=== PATIENT | female | born 2000 | race Caucasian/White ===

== ENCOUNTER 2021-06-13 10:58 | Outpatient (CLI) | payer OTHER, SELFPAY | END 2021-06-13 23:59 | disposition home or self-care (01) | LOC: LABSPEC 06-14 11:00 | PROVIDERS: PCP Family Medicine; Referring Provider Obstetrics & Gynecology; Visit Provider Obstetrics & Gynecology | DX: N90.89 Other specified noninflammatory disorders of vulva and perineum (principal) | CPT/HCPCS: 87070; 87077; 87186; 87205 ==

== ENCOUNTER → 2021-06-29 | Outpatient (CLI) | payer OTHER, SELFPAY | END | disposition home or self-care (01) | LOC: LABSPEC 16:45 | PROVIDERS: PCP Family Medicine; Visit Provider Obstetrics & Gynecology | DX: N90.89 Other specified noninflammatory disorders of vulva and perineum (principal); L72.0 Epidermal cyst | CPT/HCPCS: 87070; 87205 ==

== ENCOUNTER → 2021-07-23 | Outpatient (CLI) | payer OTHER, SELFPAY | END | disposition home or self-care (01) | PROVIDERS: PCP Family Medicine; Visit Provider Obstetrics & Gynecology | DX: L03.317 Cellulitis of buttock (principal) | CPT/HCPCS: 87070; 87077; 87186; 87205 ==

== ENCOUNTER → 2021-07-25 | Outpatient (CLI) | payer OTHER, SELFPAY ==
--- NOTE | 2021-07-25 13:30 | CT_ITS ---
STUDY: CT ABDOMEN AND PELVIS WITHOUT CONTRAST REASON FOR EXAM: Female, 21 years old. perirectal abscess that was lances today and packed with gauze. patient on menstrual cycle RADIATION DOSAGE (If Supplied By Facility): CTDIvol = ( 6.25 ) mGy, DLP = ( 332.39 ) mGycm TECHNIQUE: Transaxial images were obtained from the dome of the diaphragm to the symphysis pubis with oral contrast, and without intravenous contrast. Sagittal and coronal images were reconstructed. Individualized dose optimization techniques were used for this CT. COMPARISON: None. FINDINGS: The visualized lung bases are unremarkable. The visualized portions of the heart are within normal limits. Normal liver. Normal gallbladder and extrahepatic biliary system. Normal spleen. Normal pancreas. Normal bilateral adrenal glands. Normal right kidney. Normal left kidney. Normal visualized stomach. Normal small intestine. Normal colon. The appendix is visualized and appears normal. Normal abdominal aorta. Normal inferior vena cava. Normal retroperitoneum. Normal urinary bladder. 2.5 cm oval fluid collection with gas in the medial right buttock consistent with a known perirectal abscess. Normal osseous structures. CT/Abdomen/Pel W ORAL Cont Only IMPRESSION: Known right perirectal abscess. Otherwise normal CT of the abdomen and pelvis. Electronically Signed: Juan Tomlinson MD at 16:19 EDT ,
== END | disposition home or self-care (01) ==
LOC: CT 13:29
PROVIDERS: PCP Family Medicine; Referring Provider Obstetrics & Gynecology; Visit Provider Obstetrics & Gynecology
DX: L03.317 Cellulitis of buttock (principal); L72.0 Epidermal cyst
CPT/HCPCS: 74176

== ENCOUNTER → 2021-07-25 | Outpatient (CLI) | payer OTHER, SELFPAY | END | disposition home or self-care (01) | LOC: LABSPEC 08-03 05:05 | PROVIDERS: PCP Family Medicine; Visit Provider Obstetrics & Gynecology | DX: L02.31 Cutaneous abscess of buttock (principal) | CPT/HCPCS: 87070; 87077; 87186; 87205 ==

== ENCOUNTER 2021-07-26 09:39 | Outpatient (RCR) | payer OTHER, SELFPAY ==
[2021-07-26 10:07] VITALS: BP 120/69; PULSE 93; RESP 18; TEMP 36.6; BMI 47.2
--- NOTE | 2021-07-26 11:59 | HP.PCM_ITS ---
History of Present Illness Date of Service: 07/26/21 Chief Complaint: Right buttock abscess History of Wound: Ms. De Jesus is a 21-year-old who was referred here by her BRAILLE AND TALKING BOOKS CLERK for wound care. Had an I&D to a right buttock abscess yesterday however following I&D, significant depth was noted and so she was referred here. Patient states that over the last couple of months she has had recurrent abscesses which have been drained/managed by her BRAILLE AND TALKING BOOKS CLERK. No recent changes to detergents or cosmetics or living space. No known history of diabetes. No significant family history of. She is at a healthy BMI. No chills, fever or otherwise feeling of unwell. [facility] Home Medications norgestimate 0.25 mg-ethinyl estradiol 35 mcg tablet 1 tab PO QDAY #84 tab 03/26/21 [Rx Last Taken Unknown] ibuprofen 600 mg tablet 600 mg PO Q6H PRN #30 tab 07/23/21 [Rx Last Taken Unknown] oxycodone-acetaminophen 5 mg-325 mg tablet 1 tab PO Q6H 7 Days #10 tab 07/23/21 [Rx Last Taken Unknown] sulfamethoxazole 800 mg-trimethoprim 160 mg tablet 1 tab PO BID 10 Days #20 tab 07/23/21 [Rx Last Taken Unknown] amoxicillin 875 mg-potassium clavulanate 125 mg tablet 1 tab PO BID 10 Days #20 tab 07/25/21 [Rx Last Taken Unknown] clindamycin HCl 300 mg capsule 300 mg PO TID 10 Days #30 cap 07/25/21 [Rx Last Taken Unknown] oxycodone-acetaminophen 5 mg-325 mg tablet 1 tab PO Q4H PRN 3 Days #18 tab 07/25/21 [Rx Last Taken Unknown] Allergy/AdvReac Type Severity Reaction Status Date / Time No Known Allergies Allergy Verified 07/25/21 11:27 Family History Grandmother Cancer Breast cancer Surgical History History of tonsillectomy and adenoidectomy History of wisdom tooth extraction, class IV edentulism Social History adopted: No household members: family housing: house current occupational status: student Smoking Status: Never smoker alcohol intake: never substance use type: does not use what type of physical activity do you participate in: other details: cheerleading seatbelt use: always ROS Constitutional Constitutional: Denies change in weight, daytime sleepiness, difficulty sleeping, increased appetite, lethargy or malaise Eyes Eyes: Denies blind spots, bloody eye, blurry vision, change in eye color, diplopia, discharge from eye(s) or double vision ENT HEENT: Denies ear pain, epistaxis, facial pain, foreign body in nose, halitosis, headache(s), mouth lesions or mouth pain Cardiovascular Cardiovascular: Denies abdominal edema, arrhythmia on telemetry, bluish discolor ation of hand/feet, chest pain with activity, claudication, clubbing, cold extremities or dyspnea on exertion Respiratory/Chest Respiratory/Chest: Denies chest congestion, chest tightness, difficulty clearing secretions, dusky skin, dyspnea on exertion, excessive phlegm production or hemoptysis Gastrointestinal Gastrointestinal: Denies change in stool character, chewing difficulty, constipation, cramping, diarrhea, dry heaves, dyspepsia or early satiety Genitourinary Genitourinary: Reports difficulty with ejaculations; Denies abdominal discomfort, difficulty urinating, flank pain, itching, low back pain or nocturia Musculoskeletal Musculoskeletal: Denies difficulty walking, extremity pain, joint pain, joint stiffness, joint swelling, muscle cramps or muscle spasms Integumentary Integumentary: Denies changing lesions, hirsutism, jaundice, lesions, nail changes or new lesions Neurologic Neurologic: Denies abnormal speech, behavior changes, convulsions, disequilibrium, dizziness, focal weakness, frequent falls or headache(s) Psychiatric Psychiatric: Denies behavioral changes, change in appetite, cognitive impairment, confusion, depression, difficulty concentrating or hallucinations Endocrine Endocrinology: Denies cold intolerance, deepening of the voice, excessive sweating, fatigue, flushing, palpitations or polydipsia Hematologic/Lymphatic Hematologic/Lymphatic: Denies anemia, easy bleeding or easy bruising Allergic/Immunologic Allergic/Immunologic: Denies itchy eyes, lip swelling, seasonal rhinorrhea, rhinitis, throat swelling or tongue swelling Vital Signs Vital Signs Vital Signs: 07/26/21 10:07 Temperature 98 F Temperature Source Temporal Pulse Rate 93 Respiratory Rate 18 Blood Pressure 120/69 Blood Pressure Mean 86 Blood Pressure Source Monitor Blood Pressure Position Semi-Fowlers Blood Pressure Location Left Arm Weight Weight: 275 lb 9.245 oz Body Mass Index (BMI) 47.2 Physical Exam Const alert, oriented x3 and no apparent distress General Appearance: cooperative, comfortable and well kempt HEENT normocephalic, head/scalp atraumatic and hearing grossly normal bilaterally Head and Scalp: normal to inspection, normocephalic and atraumatic Eyes EOMs intact bilaterally General Eye: normal appearance of both eyes Neck full ROM General: normal visual inspection Resp normal respiratory effort Effort and Inspection: able to speak in complete sentences Extremity normal to inspection and full ROM Skin Wounds: wounds noted Neuro oriented x3, CN's II-XII intact bilaterally and moves all extremities Psych mental status grossly normal Appearance: grossly normal Attitude: calm Activity / Motor Behavior: appropriate eye contact Speech: normal speech Debridement Note Debridement Note Wound debrided: Right buttock Type of Debridement: Excisional debridement Anesthesia Used: 4% Lidocaine Solution Depth: Down to and including healthy tissue and in the subcutaneous layer Percentage of wound debrided: 100 Instrument Used: 3mm curette Tissue Removed: Devitalized tissue Severity: Fat Layer Exposed Amount of bleeding with debridement: Mild Bleeding Controlled with: Pressure Patient tolerated procedure: Patient tolerated procedure well Post-Debridement Measurements and Additional Note: Post-Debridement Measurements/Treatment WC - Nurse 1 - General Ulcer Assessment Start: 07/26/21 10:07 Freq: Status: Active Protocol: SOFIA Activity Type Activity Date Activity User E-Sign Co-Sign Detail Recorded Client Recorded Date Recorded By Document 07/26/21 10:07 RB [id number] 07/26/21 10:23 RB Edit Result 07/26/21 10:07 RB (1) [id number] 07/26/21 10:28 RB (1) Height => 5 ft 4 in Weight => 275 lb 9.245 oz Weight in Pounds => 275.6 lbs Body Mass Index (BMI) => 47.2 BMI Classification => Obese BSA - Julisa => 2.24 Is Patient Pain Free? Yes => No buttock - Description => Aching - Intensity => 2 - Duration (hours) => Acute - Pain Behavior => Withdrawal from => Touch - Pain Aggravating Factors => Sitting - Alleviating Factors/Interventions => Medication - Effectiveness of Alleviating Factor/ => Moderately Intervention => effective Cultural/Mormon Needs that may affect => No Treatment Plan Would you allow our hospital paint prep technician to => No meet you for the purpose of spiritual/ emotional support? Boom Master to contact place of rastafarian => No 07/26/21 10:07 WC - Today's Visit Information Type of service Follow-up Visit (Physician/SUPERVISOR CABINETMAKER ) Arrival Mode Ambulatory Transfer Assistance None Patient Identification Verified (Name & Yes ) Patient Requires Transmission-Based No Precautions Height and Weight Height 5 ft 4 in Weight 275 lb 9.245 oz Weight in Pounds 275.6 lbs Body Mass Index (BMI) 47.2 BMI Classification Obese BSA - Julisa 2.24 Vital Signs Temperature (97.8 F-99.1 F) 98 F Temperature Source Temporal Pulse Rate (60-100) 93 Pulse Location Monitor Respiratory Rate (12-18) 18 Respiratory rate source Observation Blood Pressure (90/60-120/80) 120/69 Blood Pressure Mean 86 Source Monitor Position Semi-Fowlers Blood Pressure Location Left Arm History Since Last Visit- (Skip if this is Patient's initial visit) Have you changed medications since your No last visit? Any new allergies or adverse reactions No Had a fall/change in ADL's that may No increase risk of falls Signs or symptoms of abuse and/or No neglect since last visit Have you been in the hospital since your No last visit? Has dressing in place as prescribed Yes Has compression in place as prescribed No Has offloadiing in place as prescribed No Experienced any changes in pain level or No management Left Footwear Regular Shoe Right Footwear Regular Shoe Pain Scale: 0-10 Numeric Is Patient Pain Free? No buttock -Description Aching -Intensity 2 -Duration (hours) Acute -Pain Behavior Withdrawal from Touch -Pain Aggravating Factors Sitting -Alleviating Factors/Interventions Medication -Effectiveness of Alleviating Factor/ Moderately Intervention effective Culture/Mormon/Boom Master Cultural/Mormon Needs that may affect No Treatment Plan Would you allow our hospital paint prep technician to No meet you for the purpose of spiritual/ emotional support? Boom Master to contact place of rastafarian No WC - Nurse 1 - General Ulcer Measurement Start: 07/26/21 10:07 Freq: Status: Active Protocol: Activity Type Activity Date Activity User E-Sign Co-Sign Detail Recorded Client Recorded Date Recorded By Document 07/26/21 10:07 RB [id number] 07/26/21 10:23 RB 07/26/21 10:07 Wound Center Nurse 1 1. R buttock -Combined with other wound No -Current Size (cm) - Length 0.6 -Current Size (cm) - Width 0.1 -Current Size (cm) - Depth 5 -Total Square Cm 0.06 -Photo Taken Yes -Tunneling No -Undermining/Tunneling No -Circular Undermining No -Exudate Amt Large -Exudate Type Serosanguineous -Wound Margin Distinct, Outline Attached -Granulation Amt Large (67-100%) -Granulation Quality [place] -Slough/Fibrin Yes -Necrosis Amt Small (1-33%) -Necrotic Tissue Type Adherent Slough -Structure Exposed N/A -Texture (Jennifer-wound Skin Appearance) Assessed -Moisture (Jennifer-wound Skin Appearance) Assessed -Color (Jennifer-wound Skin Appearance) Assessed -Temperature (Jennifer-wound Skin No Abnormality Appearance) (Pt Warm) -Tenderness on Palpation (Jennifer-wound No Skin Appearance) -Ulcer Cleansing Wound Cleanser -Foul Odor after Cleansing No -Anesthetic Used 5% Lidocaine Gel WC - Nurse 2 - General Ulcer CM Notes Start: 07/26/21 10:07 Freq: Status: Active Protocol: Activity Type Activity Date Activity User E-Sign Co-Sign Detail Recorded Client Recorded Date Recorded By Document 07/26/21 10:41 [id number] 07/26/21 10:54 07/26/21 10:41 Wound Center Nurse 2 -Time 10:45 -Correct Patient Yes -Correct Side, Site, Position Yes -Correct Procedure Yes -Procedure Performed Yes -Type of Procedure Debridement -Clinical Debridement Subcutaneous -Tissue Removed Subcutaneous -Post Debridement (cm) - Length 0.2 -Post Debridement (cm) - Width 0.7 -Post Debridement (cm) - Depth 4.8 -Total Square (Post) (cm) 0.14 -Area of Debridement (cm) - Length 0.2 -Area of Debridement (cm) - Width 0.7 -Total Square (Area) (cm) 0.14 -Tunneling No -Undermining/Tunneling No -Circular Undermining No -Wound/Ulcer Outcome Not Healed -Ulcer Cleansing Rinsed/ Irrigated with Saline -Foul Odor after Cleansing No -Bioengineered Tissue No -Bleeding Controlled with Pressure -Treatment Response Procedure Tolerated Well -Offloading No -Debridement - Subq, 1st 20sq cm Yes Pain Scale: 0-10 Numeric Is Patient Pain Free? Yes - Nurse 3 - General Ulcer D/C NN Start: 07/26/21 10:07 Freq: Status: Active Protocol: Activity Type Activity Date Activity User E-Sign Co-Sign Detail Recorded Client Recorded Date Recorded By Document 07/26/21 11:18 RB [id number] 07/26/21 11:18 RB 07/26/21 11:18 Wound Care Nurse 3 1. R buttock -Ulcer Cleansing Wound Cleanser -Primary Dressing Applied Aquacel AG 4x4 -Other Dressing packed into wound depth -Primary Dressing Covered/Secured with Dry Gauze, Secured with Tape -Aquacel AG 4x4 1 Treatment Response Procedure Tolerated Well Pain Scale: 0-10 Numeric Is Patient Pain Free? Yes WC - Visit Discharge Discharge Condition Stable Ambulatory Status Ambulatory Transportation Private Auto Medication Reconcilliation completed & No provided to patient/care provider Clinical Summary of Care Provided Yes Charges/Coding Visit Charges Office Visits / Consults: 76989 OV L3 New Procedures Integumentary [id number]: [id number] Darcie subq tissue 20 sq cm/< Assessment/Plan Assessment/Plan (1) Abscess of buttock, right: CODE(S): L02.31 - Cutaneous abscess of buttock PLAN: Status post I&D by BRAILLE AND TALKING BOOKS CLERK. Referred here for wound management. Debridement done as documented above, procedure was well-tolerated. Significant depth and drainage. She will benefit from a wound VAC unable to do dressings herself due to location and pain. Application for Snap vac started. In the meantime, iodoform daily to twice daily depending on drainage. Increase protein intake, vitamin C, D and zinc also discussed/recommended. Due to her recurrent abscesses she was advised to do Hibiclens wash daily, she voiced understanding. Her questions were answered and she was advised to call with any further questions or concerns. Follow-up with me in 1 week or sooner if needed. This note was generated with [employer] software. It may contain incorrect words, spelling, and punctuation that were not noted in checking the note before signing.
== END 2021-07-31 23:59 | disposition home or self-care (01) ==
LOC: WC 09:39
PROVIDERS: PCP Family Medicine; Visit Provider Internal Medicine
DX: L02.31 Cutaneous abscess of buttock (principal); Z79.899 Other long term (current) drug therapy
CPT/HCPCS: 11042; 99213; G0463

== ENCOUNTER 2021-08-02 09:15 | Outpatient (RCR) | payer OTHER, SELFPAY ==
[2021-08-01 01:19] VITALS: BP 120/69; PULSE 93; RESP 18; TEMP 36.6; BMI 47.2
[2021-08-02 09:03] VITALS: BP 124/91; PULSE 110; RESP 16; TEMP 36.2; BMI 47.2
--- NOTE | 2021-08-02 12:43 | PCM.WC.PN ---
History of Present Illness Date of Service: 08/02/21 Chief Complaint: Right buttock abscess History of Wound: Ms. De Jesus is a 21-year-old who was referred here by her SHIP ENGINES OPERATING ENGINEER for wound care. Had an I&D to a right buttock abscess yesterday however following I&D, significant depth was noted and so she was referred here. Patient states that over the last couple of months she has had recurrent abscesses which have been drained/managed by her SHIP ENGINES OPERATING ENGINEER. No recent changes to detergents or cosmetics or living space. No known history of diabetes. No significant family history of. She is at a healthy BMI. No chills, fever or otherwise feeling of unwell. Progress of Wound: Has been applying iodoform, has had no significant drainage in days. Area is healed. Objective Data Objective Data Vital Signs: Vital Signs Temp Pulse Resp BP 97.1 F L 110 H 16 124/91 H 08/02/21 09:03 08/02/21 09:03 08/02/21 09:03 08/02/21 09:03 Oxygen Delivery Method Room Air Weight: 275 lb 9.245 oz Body Mass Index (BMI) 47.2 Charges/Coding Visit Charges Office Visits / Consults: 19401 OV L3 Est Physical Exam Const alert, oriented x3 and no apparent distress General Appearance: cooperative, comfortable and well kempt HEENT normocephalic, head/scalp atraumatic and hearing grossly normal bilaterally Head and Scalp: normal to inspection, normocephalic and atraumatic Eyes EOMs intact bilaterally General Eye: normal appearance of both eyes Neck full ROM General: normal visual inspection Resp normal respiratory effort Effort and Inspection: able to speak in complete sentences Extremity normal to inspection and full ROM Neuro oriented x3, CN's II-XII intact bilaterally and moves all extremities Psych mental status grossly normal Appearance: grossly normal Attitude: calm Activity / Motor Behavior: appropriate eye contact Speech: normal speech Debridement Note Debridement Note Post-Debridement Measurements and Additional Note: Post-Debridement Measurements/Treatment MAYTE - Nurse 1 - General Ulcer Assessment Start: 08/02/21 09:03 Freq: Status: Active Protocol: SOFIA Activity Type Activity Date Activity User E-Sign Co-Sign Detail Recorded Client Recorded Date Recorded By Document 08/02/21 09:03 [facility] [id number] 08/02/21 09:11 [facility] 08/02/21 09:03 - Today's Visit Information Type of service Follow-up Visit (Physician/BRONC BUSTER ) Arrival Mode Ambulatory Transfer Assistance None Patient Identification Verified (Name & Yes ) Patient Requires Transmission-Based No Precautions Height and Weight Body Mass Index (BMI) 47.2 BMI Classification Obese Vital Signs Temperature (97.8 F-99.1 F) 97.1 F L Temperature Source Temporal Pulse Rate (60-100) 110 H Pulse Location Monitor Respiratory Rate (12-18) 16 Respiratory rate source Observation Oxygen Delivery Method Room Air Blood Pressure (90/60-120/80) 124/91 H Blood Pressure Mean (mm Hg) 102 Source Monitor Position Sitting Blood Pressure Location Right Arm History Since Last Visit- (Skip if this is Patient's initial visit) Have you changed medications since your No last visit? Any new allergies or adverse reactions No Had a fall/change in ADL's that may No increase risk of falls Signs or symptoms of abuse and/or No neglect since last visit Have you been in the hospital since your No last visit? Has dressing in place as prescribed No Has compression in place as prescribed N/A Has offloadiing in place as prescribed N/A Experienced any changes in pain level or No management Left Footwear Regular Shoe Right Footwear Regular Shoe Pain Scale: 0-10 Numeric Is Patient Pain Free? Yes - Nurse 1 - General Ulcer Measurement Start: 08/02/21 09:03 Freq: Status: Active Protocol: Activity Type Activity Date Activity User E-Sign Co-Sign Detail Recorded Client Recorded Date Recorded By Document 08/02/21 09:03 [facility] [id number] 08/02/21 09:11 [facility] 08/02/21 09:03 Wound Center Nurse 1 1. R buttock -Combined with other wound No -Current Size (cm) - Length 0.1 -Current Size (cm) - Width 0.1 -Current Size (cm) - Depth 0.1 -Total Square Cm 0.01 -Photo Taken No -Epithelialization Large 67-100% -Tunneling No -Undermining/Tunneling No -Circular Undermining No -Exudate Amt None Present -Texture (Jennifer-wound Skin Appearance) Assessed -Moisture (Jennifer-wound Skin Appearance) Assessed -Color (Jennifer-wound Skin Appearance) Assessed -Temperature (Jennifer-wound Skin No Abnormality Appearance) (Pt Warm) -Tenderness on Palpation (Jennifer-wound No Skin Appearance) -Ulcer Cleansing Rinsed/ Irrigated with Saline -Foul Odor after Cleansing Yes, Due to Product Use -Anesthetic Used 5% Lidocaine Gel WC - Nurse 2 - General Ulcer CM Notes Start: 08/02/21 09:03 Freq: Status: Active Protocol: Activity Type Activity Date Activity User E-Sign Co-Sign Detail Recorded Client Recorded Date Recorded By Document 08/02/21 09:18 MW [id number] 08/02/21 09:19 MW 08/02/21 09:18 Wound Center Nurse 2 -Time 09:19 -Correct Patient Yes -Correct Side, Site, Position Yes -Correct Procedure Yes -Procedure Performed No -Post Debridement (cm) - Length 0 -Post Debridement (cm) - Width 0 -Post Debridement (cm) - Depth 0 -Total Square (Post) (cm) 0 -Wound/Ulcer Outcome Healed- Epithelialized Pain Scale: 0-10 Numeric Is Patient Pain Free? Yes WC - Nurse 3 - General Ulcer D/C NN Start: 08/02/21 09:03 Freq: Status: Active Protocol: Activity Type Activity Date Activity User E-Sign Co-Sign Detail Recorded Client Recorded Date Recorded By Document 08/02/21 09:19 MW [id number] 08/02/21 09:20 MW 08/02/21 09:19 Is Patient Pain Free? Yes Teaching: Wound Center Discharge Instructions -Person Taught Patient -Teaching Method Discussion -Response to teaching Verbalize understanding WC - Visit Discharge Discharge Condition Stable Ambulatory Status Ambulatory Transportation Private Auto Accompanied by self Medication Reconcilliation completed & No provided to patient/care provider Clinical Summary of Care Provided Yes Notes: healed Assessment/Plan Assessment/Plan (1) Abscess of buttock, right: CODE(S): L02.31 - Cutaneous abscess of buttock PLAN: Healed. She states that she has had no drainage. Had been using iodoform. Continue Hibiclens wash. Her questions were answered and she was advised to call with any further questions or concerns. Discharge from the wound clinic. This note was generated with [employer] software. It may contain incorrect words, spelling, and punctuation that were not noted in checking the note before signing.
== END 2021-08-02 16:04 | disposition home or self-care (01) ==
LOC: WC 09:15
PROVIDERS: PCP Family Medicine; Visit Provider Internal Medicine
DX: L02.31 Cutaneous abscess of buttock (principal)
CPT/HCPCS: 99212; G0463

== ENCOUNTER 2021-11-10 20:40 | Emergency (ER) | payer OTHER, SELFPAY ==
[2021-11-10 20:42] VITALS: BP 161/88; PULSE 130; RESP 18; TEMP 38.2; O2SAT 100; BMI 21.4
--- NOTE | 2021-11-10 21:12 | EDS_ITS ---
HPI History of Present Illness Chief Complaint: Headache Informant: patient and parent Narrative Narrative: Here with mother for evaluation had a fever since yesterday myalgias. No cough. No sore throat. No rhinorrhea. No urinary symptoms. No vomiting or diarrhea. Nonvaccinated for COVID. Denies sick contacts. Goes to college. Also works in a daycare. Using medicines [id number] with no relief. [facility]. Reported that they did not treat migraines therefore nothing was done. No COVID testing. Reports some neck pain however no significant. Mother here presents stating her son had meningitis have is viral in the past. Reports photo and phonophobia. Last menstrual period 3 weeks ago. Prior similar symptoms: No PFSH PFSH Home Medications norgestimate 0.25 mg-ethinyl estradiol 35 mcg tablet (Sprintec (28)) 1 tab PO QDAY #84 tabs 03/26/21 [Rx Last Taken Unknown] ibuprofen 600 mg tablet 600 mg PO Q6H PRN pain #30 tabs 07/23/21 [Rx Last Taken Unknown] Allergy/AdvReac Type Severity Reaction Status Date / Time No Known Allergies Allergy Verified 11/10/21 20:42 Family History Grandmother Cancer Breast cancer Surgical History History of tonsillectomy and adenoidectomy History of wisdom tooth extraction, class IV edentulism Social History adopted: No household members: family housing: house current occupational status: student Smoking Status: Never smoker alcohol intake: never substance use type: does not use what type of physical activity do you participate in: other details: dimitrios beckwith seatbelt use: always ROS ROS ED Constitutional Constitutional ED: Reports chills and fever(s); Denies sweats Eyes Eyes: Denies change in vision ENT ENT ED: Denies dysphagia or sore throat Cardiovascular Cardiovascular: Denies chest pain, leg edema, palpitations or racing heartbeat Respiratory/Chest Respiratory/Chest: Denies cough, dyspnea or dyspnea on exertion Gastrointestinal Gastrointestinal: Denies abdominal pain, diarrhea, nausea or vomiting Genitourinary Genitourinary ED: Denies dysuria, hematuria or urinary frequency Musculoskeletal Musculoskeletal: Denies back pain, extremity pain or neck pain Integumentary Denies rash or wounds Neurologic Neurologic: Reports headache(s); Denies paresthesias or weakness EXAM Physical Exam Const Vital Signs: 11/10/21 20:42 11/10/21 21:42 11/10/21 23:27 Temperature 100.8 F H 99.8 F H Temperature Source Oral Oral Pulse Rate 130 H 98 Respiratory Rate 18 16 Respiratory Pattern Normal Blood Pressure 161/88 H 132/74 H Blood Pressure Mean 112 93 Pulse Ox 100 99 Oxygen Delivery Method Room Air Room Air 11/10/21 23:27 Temperature 99.8 F H Temperature Source Pulse Rate 98 Respiratory Rate 16 Respiratory Pattern Blood Pressure 132/74 H Blood Pressure Mean Pulse Ox 99 Oxygen Delivery Method Positive well nourished and well developed General Appearance ED: well developed and NAD HEENT Reports TM's clear and moist mucous membranes normocephalic and atraumatic Tympanic Membrane ED: Yes TM's clear Eyes PERRL, EOMs intact bilaterally and conjunctivae normal General Eye ED: Yes normal appearance of both eyes Neck no lymphadenopathy, supple and no meningeal signs General: Negative for tenderness Chest Wall Chest: Negative for tenderness Resp normal respiratory effort and normal air movement Effort and Inspection: symmetric chest movement; Negative for respiratory distress Cardio regular rhythm and no murmurs Rate: tachycardic Peripheral Pulses: pulses 2+ throughout GI normal to inspection, nondistended, normoactive bowel sounds and non-tender Palpation: Negative for guarding or rebound tenderness present Back/Spine no CVA tenderness and no thoracic nor lumbar tenderness Extremity normal to inspection General Extremety ED: Negative for edema or tenderness General Extremity: Negative for edema Neuro oriented x3, CN's II-XII intact bilaterally and no sensory deficits noted Sensorium / Orientation: awake and alert Skin no rashes or lesions noted and no wounds MDM MDM MDM Narrative Medical decision making narrative: Patient presenting with low-grade fever headache. She reports neck pain however she has no meningismus signs. She has migraine symptoms. COVID influenza returned negative. She was treated with migraine cocktail with improving symptoms. I did discuss with mother and patient concerns for meningitis definitive rule out would be for lumbar puncture. Certainly not bacterial has been more than 24 hours. Did not want to pursue work-up at this time. Heart rate improved with fluids. She will continue Tylenol Motrin at home. Discussed could be false negative COVID and or influenza symptoms only within 1 day. They can retest in 2 days. Return precaution discussed. All questions were answered. Discharge Plan Triage Chief Complaint: Headache Other Complaint: Fever ED Provider: Riley Marie Dx/Rx/DC Orders Clinical Impression: Migraine headache, Viral syndrome, Fever Instructions: ED Headache Unspecified, ED Viral Syndrome (Adult) Prescriptions: No Action ibuprofen 600 mg tablet 600 mg PO Q6H PRN (Reason: pain) Qty: 30 0RF norgestimate-ethinyl estradiol [Sprintec (28)] 0.25-35 mg-mcg tablet 1 tab PO QDAY Qty: 84 4RF Primary Care Provider: Naila Mckeon Referrals: Naila Mckeon MD [Primary Care Provider] - 3-5 Days if not improving Activity Restrictions/Additional Instructions: Rapid COVID and flu negative today. May recheck at home COVID in 2 days if still symptomatic. Continue Tylenol Motrin and oral fluids. Return if any worsening symptoms. Disposition Disposition: Home, Self Care Discharge Date/Time: 11/10/21 23:29
[2021-11-10] MEDS: Ketorolac 15 MG/ML Vial IV (21:32)
[2021-11-10] MEDS: 0.9% Normal Saline 1,000 ML 999 ML IV (21:32)
[2021-11-10] MEDS: Metoclopramide 10 MG/2 ML Vial IV (21:33)
[2021-11-10] MEDS: DiphenhydrAMINE 50 MG/ML Syringe 25 MG IV (21:33)
[2021-11-10 23:27] VITALS: BP 132/74; PULSE 98; RESP 16; TEMP 37.7; O2SAT 99
== END 2021-11-10 23:29 | disposition home or self-care (01) ==
PROVIDERS: Emergency Provider Emergency Medicine; PCP Family Medicine; Visit Provider Emergency Medicine
DX: G43.909 Migraine, unspecified, not intractable, without status migrainosus (principal); Z20.822 Contact with and (suspected) exposure to COVID-19; B34.9 Viral infection, unspecified; Z28.310 Unvaccinated for COVID-19; R50.9 Fever, unspecified; M54.2 Cervicalgia
CPT/HCPCS: 87428; 96361; 96374; 96375; 99284; J7030

== ENCOUNTER → 2022-03-11 | Outpatient (CLI) | payer OTHER, SELFPAY ==
[2022-03-19 22:20] LABS: HPV APTIMA, High Risk Negative (Negative)
[2022-03-19 22:21] LABS: HPV Reflexed? YES, CHARGE PATIENT
== END | disposition home or self-care (01) ==
PROVIDERS: PCP Family Medicine; Visit Provider Nurse Practitioner Women's Health
DX: Z12.4 Encounter for screening for malignant neoplasm of cervix (principal)
CPT/HCPCS: 87624; 88175; G0145

== ENCOUNTER → 2022-09-13 | Outpatient (CLI) | payer OTHER, SELFPAY ==
[2022-09-13 17:52] LABS: Absolute Lymphocyte Count 2.15 X10^3/uL (0.83-4.51); Absolute Neutrophil Count 3.7 X10^3/uL (2.0-7.7); Basophil# 0.04 X10^3/uL; Basophil% 0.6 % (0-1); Eosinophil# 0.05 X10^3/uL; Eosinophils% 0.8 % (0-5); Hematocrit 41.6 % (37-47); Hemoglobin 13.5 g/dL (12.0-15.0); Lymphocyte # 2.15 X10^3/ul (0.83-4.51); Lymphocyte % 33.9 % (19-41); Mean Corp Hgb Conc 32.5 g/dL (32-36); Mean Corpuscular Hgb 29.3 pg (27.0-32.0); Mean Corpuscular Volume 90.2 fL (81-99); Mean Platelet Vol. 10.6 fl (6.2-12.0); Monocyte# 0.36 X10^3/uL; Monocyte% 5.7 % (0-10); NRBC Flagged by Analyzer 0 % (0-5); Neutrophil # 3.73 X10^3/uL (2.7-7.7); Neutrophil % 58.8 % (47-70); Platelet Count 255 K/mm3 (150-450); RBC Distribution Width CV 12.2 % (11.6-14.6); RBC Distribution Width SD 40.1 fl (35.1-43.9); Red Blood Count 4.61 M/mm3 (4.2-5.4); White Blood Count 6.3 K/mm3 (4.4-11.0)
[2022-09-13 18:14] LABS: Internal QC Validated? YES +Cl - CLEAR BKGD; Monotest Negative (Negative)
== END | disposition home or self-care (01) ==
LOC: MFPLAB 14:51
PROVIDERS: PCP Family Medicine; Visit Provider Family Medicine
DX: J02.9 Acute pharyngitis, unspecified (principal)
CPT/HCPCS: 36415; 85025; 86308

== ENCOUNTER → 2023-05-05 | Outpatient (CLI) | payer OTHER, SELFPAY | END | disposition home or self-care (01) | LOC: LABSPEC 10:37 | PROVIDERS: PCP Family Medicine; Visit Provider Nurse Practitioner Family | DX: J02.9 Acute pharyngitis, unspecified (principal) | CPT/HCPCS: 87070 ==

== ENCOUNTER 2024-01-31 18:17 | Emergency (ER) | payer OTHER, SELFPAY ==
[2024-01-31 18:20] VITALS: BP 160/100; PULSE 143; RESP 18; TEMP 36.8; O2SAT 99; BMI 24.5
--- NOTE | 2024-01-31 18:45 | EKG12_ITS ---
Test Reason : DYSRHYTHMIA Blood Pressure : */* mmHG Vent. Rate : 101 BPM Atrial Rate : 101 BPM P-R Int : 134 ms QRS Dur : 78 ms QT Int : 332 ms P-R-T Axes : 70 64 40 degrees QTcB Int : 430 ms Sinus tachycardia Otherwise normal ECG Confirmed by Esdras Ramirez ([id number]), food editor BRENNEN PLATT ([id number]) on 02/02/2024 11:37:26 AM Referred By: Riley Marie Confirmed By: Esdras Ramirez
--- NOTE | 2024-01-31 18:46 | EX.ED.DYSGE1 ---
HPI History of Present Illness Chief Complaint: General Illness Informant: patient and spouse/S.O. Narrative Narrative: Presents racing heart lightheaded symptoms her last few days. 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 She stopped a couple days ago due to symptoms. Few weeks ago had symptoms similar overnight that went away. No recent vomiting diarrhea. No recent travel. No recent illness. Prior a few weeks ago and never had similar symptoms in the past. No past med history. She is on control. She does not smoke. Denies any family history of any dysrhythmias. Prior similar symptoms: Yes [facility] Medical History Acute frontal sinusitis, unspecified Ischiorectal abscess Home Medications ?Medication ?Instructions ?Recorded ?Last Taken ?Type norgestimate 0.25 mg-ethinyl 1 tab PO QDAY #84 tabs 03/28/23 Unknown Rx estradiol 35 mcg tablet (Sprintec (28)) potassium chloride 20 mEq 20 meq PO DAILY #7 tabs 01/31/24 Unknown Rx tablet,extended release Allergy/AdvReac Type Severity Reaction Status Date / Time No Known Allergies Allergy Verified 01/31/24 18:20 Family History Grandmother Cancer Breast cancer Surgical History History of wisdom tooth extraction, class IV edentulism History of tonsillectomy and adenoidectomy Social History adopted: No household members: family housing: house current occupational status: student Smoking Status: Never smoker alcohol intake: never substance use type: does not use what type of physical activity do you participate in: other details: cheerleading seatbelt use: always ROS ROS ED Constitutional Constitutional ED: Denies chills, fever(s) or sweats Eyes Eyes: Denies change in vision ENT ENT ED: Denies dysphagia or sore throat Cardiovascular Cardiovascular: Reports palpitations, racing heartbeat and other Details: Lightheaded symptoms. ; Denies chest pain or leg edema Respiratory/Chest Respiratory/Chest: Denies cough, dyspnea or dyspnea on exertion Gastrointestinal Gastrointestinal: Denies abdominal pain, diarrhea, nausea or vomiting Genitourinary Genitourinary ED: Denies dysuria, hematuria or urinary frequency Musculoskeletal Musculoskeletal: Denies back pain, extremity pain or neck pain Integumentary Denies rash or wounds Neurologic Neurologic: Denies headache(s), paresthesias or weakness EXAM Physical Exam Const Vital Signs: 01/31/24 18:20 01/31/24 18:44 01/31/24 20:04 Temperature 98.3 F 18 F L Temperature Source Temporal Pulse Rate 143 H 98 Respiratory Rate 18 23 H Respiratory Effort Normal Non-Labored Respiratory Pattern Normal Blood Pressure 160/100 H 130/91 H Blood Pressure Mean 120 104 Pulse Ox 99 99 Oxygen Delivery Method Room Air Positive well nourished and well developed General Appearance ED: well developed and NAD HEENT Reports moist mucous membranes normocephalic and atraumatic Eyes EOMs intact bilaterally and conjunctivae normal General Eye ED: Yes normal appearance of both eyes Neck no lymphadenopathy and supple General: Negative for tenderness Chest Wall Chest: Negative for tenderness Resp normal respiratory effort and normal air movement Effort and Inspection: symmetric chest movement; Negative for respiratory distress Cardio regular rhythm and no murmurs Rate: tachycardic Peripheral Pulses: pulses 2+ throughout GI normal to inspection, nondistended, normoactive bowel sounds and non-tender Palpation: Negative for guarding or rebound tenderness present Back/Spine no CVA tenderness and no thoracic nor lumbar tenderness Extremity normal to inspection General Extremety ED: Negative for edema or tenderness General Extremity: Negative for edema Neuro oriented x3 and no sensory deficits noted Sensorium / Orientation: awake and alert Skin no rashes or lesions noted and no wounds MDM MDM MDM Narrative Medical decision making narrative: Interventions / MDM: Differential diagnosis: Supraventricular tachycardia, palpitations Diagnosis considered but do not suspect: N/A My EKG interpretation: Sinus rate of 101, no ST or T wave changes. QTc 430. Imaging independently reviewed and interpreted by myself: N/A External documents reviewed: N/A Test considered but not ordered:N/A ED course: Patient tachycardic on arrival. On the monitor appears narrow complex tachycardia heart rate 130s to 140s. I did perform Valsalva with patient blowing through a syringe, this helped her heart rate go down to 100s to 110s. Blood pressure stable. Give IV fluids, will check labs and EKG. Will continue to monitor. 1930: EKG sinus rate of 101. Lab work hemoglobin 13.3. Potassium 3.0 creatinine 0.87. TSH 1.39. Oral potassium given. Symptoms improved after Valsalva concerns for slow rate SVT. She is continue potassium replacement for a week. She is given follow-up cardiology. She will be set up for 48-hour Holter monitor. Return precautions. All questions were answered. Re-evaluation: stable Disposition discussed with patient/family/significant other: Patient and significant other Case discussed with consulting clinician: N/A This note was generated with [employer] dictation software. It may contain incorrect words, spelling, and punctuation that were not noted in checking the note before signing. Lab Data Attestation: I reviewed the patient's lab results. Labs: Laboratory Results - last 24 hr 01/31/24 18:43 WBC 7.6 RBC 4.51 Hgb 13.3 Hct 39.1 MCV 86.7 MCH 29.5 MCHC 34.0 RDW Std Deviation 39.6 RDW Coeff of Kev 12.4 Plt Count 237 MPV 10.4 Immature Gran % (Auto) 0.300 Neut % (Auto) 65.5 Lymph % (Auto) 26.8 [place] % (Auto) 6.3 Eos % (Auto) 0.4 Baso % (Auto) 0.7 Absolute Neuts (auto) 5.0 Absolute Lymphs (auto) 2.04 Nucleated RBC % 0 Sodium 140 Potassium 3.0 L Chloride 108 H Carbon Dioxide 24.0 Anion Gap 8 BUN 8 Creatinine 0.87 Estim Creat Clear Calc 89.90 Est GFR (MDRD) Af Amer 103 Est GFR (MDRD) Non-Af 85 BUN/Creatinine Ratio 9.2 L Glucose 129 H Calcium 9.1 TSH 1.390 Serum , Qual NEGATIVE Discharge Plan Triage Chief Complaint: General Illness ED Provider: Riley Marie Dx/Rx/DC Orders Clinical Impression: SVT (supraventricular tachycardia), Palpitations, Hypokalemia Instructions: Supraventricular Tachycardia, ED Palpitations Prescriptions: New potassium chloride 20 mEq tablet extended release 20 meq PO DAILY Qty: 7 0RF No Action norgestimate-ethinyl estradiol [Sprintec (28)] 0.25-35 mg-mcg tablet 1 tab PO QDAY Qty: 84 4RF Other Ambulatory Orders: Cardiac Holter Monitor, 48 Hrs (Routine) Timeframe: 2 Days Facility: [facility] - Location: Cardiovascular Services Ordered By: Dr. Riley Marie Primary Care Provider: Naila Mckeon Referrals: Naila Mckeon MD [Primary Care Provider] - SamMarcia MD [Med Staff - Active Staff] - 1-2 Weeks Activity Restrictions/Additional Instructions: Your palpitations concerning for supraventricular tachycardia rhythm that improved after Valsalva. Your potassium 3.0. Take potassium replacement as prescribed. Follow with cardiology. Avoid caffeine. You will be contacted for your 48-hour Holter monitor to be placed. If you develop recurrent symptoms, return to the ED for reevaluation. Print Language: Divehi Disposition Disposition: Home, Self Care Discharge Date/Time: 01/31/24 20:05
[2024-01-31] MEDS: 0.9% Normal Saline (1000mL) 1,000 ML 999 ML IV (18:48)
[2024-01-31 19:04] LABS: Absolute Lymphocyte Count 2.04 X10^3/uL (0.83-4.51); Basophil# 0.05 X10^3/uL; Basophil% 0.7 % (0-1); Eosinophil# 0.03 X10^3/uL; Eosinophils% 0.4 % (0-5); Hematocrit 39.1 % (37-47); Hemoglobin 13.3 g/dL (12.0-15.0); Lymphocyte # 2.04 X10^3/ul (0.83-4.51); Lymphocyte % 26.8 % (19-41); Mean Corpuscular Hgb 29.5 pg (27.0-32.0); Mean Corpuscular Volume 86.7 fL (81-99); Mean Platelet Vol. 10.4 fl (6.2-12.0); Monocyte# 0.48 X10^3/uL; Monocyte% 6.3 % (0-10); NRBC Flagged by Analyzer 0 % (0-5); Neutrophil % 65.5 % (47-70); Platelet Count 237 K/mm3 (150-450); RBC Distribution Width CV 12.4 % (11.6-14.6); RBC Distribution Width SD 39.6 fl (35.1-43.9); Red Blood Count 4.51 M/mm3 (4.2-5.4); White Blood Count 7.6 K/mm3 (4.4-11.0)
[2024-01-31 19:12] LABS: Internal QC Validated? YES +Cl - CLEAR BKGD; Pregnancy, Serum, hCG Quali. NEGATIVE Negative; Record Kit Lot#, Serum Preg. 869294
[2024-01-31 19:27] LABS: Anion Gap 8 (5-15); BUN 8 mg/dL (7-18); BUN/Creat Ratio 9.2 RATIO (10-20); Calcium,Total 9.1 mg/dL (8.5-10.1); Chloride 108 mmol/L (98-107); Creatinine, Serum 0.87 mg/dL (0.55-1.02); EST Glomerular Filtration Rate 85 mL/min (>60); Est Glom Filt Rate - Afr Amer 103 mL/min (>60); Glucose 129 mg/dL (74-106); Sodium Level 140 mmol/L (136-145)
[2024-01-31] MEDS: Potassium Chloride Oral Tablet 20 MEQ 40 MEQ PO (19:34)
[2024-01-31 20:04] VITALS: BP 130/91; PULSE 98; RESP 23; TEMP -7.7; TEMP 18; O2SAT 99
== END 2024-01-31 20:05 | disposition home or self-care (01) ==
PROVIDERS: Emergency Provider Emergency Medicine; PCP Family Medicine; Referring Provider Emergency Medicine; Visit Provider Emergency Medicine
DX: I47.10 Supraventricular tachycardia, unspecified (principal); E87.6 Hypokalemia; Z79.3 Long term (current) use of hormonal contraceptives
CPT/HCPCS: 80048; 84443; 84703; 85025; 93005; 96360; 99284; A4216

== ENCOUNTER → 2024-01-31 | Outpatient (CLI) | payer OTHER, SELFPAY | END | disposition home or self-care (01) | LOC: CVS 19:43 | PROVIDERS: PCP Family Medicine; Visit Provider Emergency Medicine | DX: R00.2 Palpitations (principal) ==

== ENCOUNTER → 2024-03-11 | Outpatient (CLI) | payer OTHER, SELFPAY ==
[2024-03-11 16:44] LABS: Anion Gap 6 (5-15); BUN 7 mg/dL (7-18); BUN/Creat Ratio 13.5 RATIO (10-20); Calcium,Total 9.6 mg/dL (8.5-10.1); Chloride 104 mmol/L (98-107); Creatinine, Serum 0.52 mg/dL (0.55-1.02); EST Glomerular Filtration Rate 155 mL/min (>60); Est Glom Filt Rate - Afr Amer 187 mL/min (>60); Glucose 89 mg/dL (74-106); Potassium 3.7 mmol/L (3.5-5.1); Sodium Level 136 mmol/L (136-145)
== END | disposition home or self-care (01) ==
LOC: LAB 15:05
PROVIDERS: Referring Provider Internal Medicine Cardiovascular Disease; Visit Provider Internal Medicine Cardiovascular Disease
DX: I47.10 Supraventricular tachycardia, unspecified (principal)
CPT/HCPCS: 36415; 80048

== ENCOUNTER → 2024-04-12 | Outpatient (CLI) | payer OTHER, SELFPAY | END | disposition home or self-care (01) | LOC: LABSPEC 14:53 | PROVIDERS: Visit Provider Physician Assistant Surgical | DX: R35.0 Frequency of micturition (principal) | CPT/HCPCS: 87086 ==

== ENCOUNTER → 2024-04-19 | Outpatient (CLI) | payer OTHER, SELFPAY ==
[2024-04-19 12:44] LABS: Absolute Lymphocyte Count 1.57 X10^3/uL (0.83-4.51); Absolute Neutrophil Count 4.2 X10^3/uL (2.0-7.7); Basophil# 0.04 X10^3/uL; Basophil% 0.6 % (0-1); Eosinophil# 0.04 X10^3/uL; Eosinophils% 0.6 % (0-5); Hemoglobin 14.2 g/dL (12.0-15.0); Lymphocyte # 1.57 X10^3/ul (0.83-4.51); Lymphocyte % 25.4 % (19-41); Mean Corp Hgb Conc 33.8 g/dL (32-36); Mean Corpuscular Hgb 29.9 pg (27.0-32.0); Mean Corpuscular Volume 88.4 fL (81-99); Mean Platelet Vol. 10.4 fl (6.2-12.0); Monocyte# 0.35 X10^3/uL; Monocyte% 5.7 % (0-10); NRBC Flagged by Analyzer 0 % (0-5); Neutrophil # 4.15 X10^3/uL (2.7-7.7); Neutrophil % 67.4 % (47-70); Platelet Count 227 K/mm3 (150-450); RBC Distribution Width CV 12.5 % (11.6-14.6); RBC Distribution Width SD 40.3 fl (35.1-43.9); Red Blood Count 4.75 M/mm3 (4.2-5.4); White Blood Count 6.2 K/mm3 (4.4-11.0)
[2024-04-19 13:13] LABS: ALB/GLOB Ratio 1.1 RATIO (0.9-2.4); AST(SGOT) 33 U/L (15-37); Alanine Aminotransfer ALT/SGPT 62 U/L (13-56); Albumin, Serum 3.9 g/dL (3.2-5.0); Alkaline Phosphatase 63 U/L (45-117); Anion Gap 7 (5-15); BUN 8 mg/dL (7-18); BUN/Creat Ratio 13.9 RATIO (10-20); Calcium,Total 9.5 mg/dL (8.5-10.1); Chloride 104 mmol/L (98-107); Creatinine, Serum 0.57 mg/dL (0.55-1.02); EST Glomerular Filtration Rate 138 mL/min (>60); Est Glom Filt Rate - Afr Amer 167 mL/min (>60); Globulin 3.5 g/dL (2.2-4.2); Glucose 80 mg/dL (74-106); Potassium 3.8 mmol/L (3.5-5.1); Protein, Total 7.4 g/dL (6.4-8.2); Sodium Level 138 mmol/L (136-145)
[2024-04-19 13:47] LABS: Internal QC Validated? YES +Cl - CLEAR BKGD; Monotest Negative (Negative); Record Kit Lot#, Mono 13241430
== END | disposition home or self-care (01) ==
DX: R16.1 Splenomegaly, not elsewhere classified (principal); R53.83 Other fatigue
CPT/HCPCS: 36415; 80053; 85025; 86308

== ENCOUNTER → 2024-05-20 | Outpatient (CLI) | payer OTHER, SELFPAY ==
--- NOTE | 2024-05-20 14:48 | CT_ITS ---
PROCEDURE: ABDOMEN/PELVIS WITH CONTRAST 05/20/2024 REASON FOR EXAM: 1-1/2 month history of left-sided abdominal/flank pain. TECHNIQUE: Abdomen CT without and with intravenous contrast. Coronal and Sagittal reconstruction series were provided. PATIENT PREPARATION: Per protocol ORAL CONTRAST TYPE: Given. CONTRAST: Isovue-300 VOLUME: 100mL One or more dose reduction techniques were used (e.g., Automated exposure control, adjustment of the mA and/or kV according to patient size, use of iterative reconstruction technique. RADIATION DOSE SUMMARY: CTDlvol: 10.5 mGy DLP: 401.73 mGycm COMPARISON: Comparison is made with prior study dated July 26, 1999 22. FINDINGS: Lung bases: Unremarkable Liver: Normal size. No mass. Gallbladder: Unremarkable. Spleen: Normal size. Pancreas: Normal size without evidence of mass surrounding inflammation or ductal dilation. Adrenals: Unremarkable Kidneys: Normal renal sizes. No hydronephrosis. Bladder: Unremarkable Reproductive Organs: Multiple follicles/small cysts seen in both ovaries more prominent on the right side. Bowel: No bowel obstruction.. Residual food particles in oral contrast seen within the stomach. Appendix: Unremarkable Lymph nodes: Unremarkable. Vasculature: The abdominal aorta and IVC are normal. Peritoneum / Retroperitoneum: Unremarkable Bones: CT/Abdomen/Pelvis WITH Contrast IMPRESSION: Residual food and fluids within the stomach. Bilateral ovarian follicles/small cysts worse in the right ovary. Reading Location: [place] [id number]
== END | disposition home or self-care (01) ==
LOC: CT 14:47
DX: R10.9 Unspecified abdominal pain (principal)
CPT/HCPCS: 74177; Q9967